=== PATIENT | male | born 1995 | race Caucasian/White ===

== ENCOUNTER 2023-09-12 11:03 | Emergency (ER) | payer SELFPAY ==
[~2023-09-12] VITALS: Ht 182.9 cm; Wt 103.4 kg
[2023-09-12 11:29] VITALS: BP 123/70; PULSE 72; RESP 16; TEMP 97.4; O2SAT 99
[2023-09-12] MEDS ORDERED: BENZ20GE11 MM (13:04)
[2023-09-12] MEDS ORDERED: KETO10TA2 PO (13:04)
[2023-09-12] MEDS ORDERED: AMOX1TAB8 PO (13:04)
[2023-09-12] MEDS: KETOROLAC 30 MG/ML VIAL IM ONE (13:09)
== END 2023-09-12 13:34 | disposition home or self-care (01) ==
LOC: MED 11:03
DX: K02.9 Dental caries, unspecified (principal); R03.0 Elevated blood-pressure reading, without diagnosis of hypertension; Z79.2 Long term (current) use of antibiotics; Z79.899 Other long term (current) drug therapy
CPT/HCPCS: 96372; 99283; J1885